=== PATIENT | female | born 1965 | race Two or more races ===

== ENCOUNTER 2022-02-07 05:46 | Day surgery (SDC) | payer OTHER | END 2022-02-07 11:30 | disposition home or self-care (01) | LOC: AMB-ENDOS 05:46 | PROVIDERS: ATTEND Colon & Rectal Surgery | DX: Z86.010 Personal history of colon polyps (principal); R19.5 Other fecal abnormalities; Z20.822 Contact with and (suspected) exposure to COVID-19 ==